=== PATIENT | male | born 1950 | race Caucasian/White ===

== ENCOUNTER → 2024-09-06 | Outpatient (CLI) | payer OTHER ==
[2024-09-12 14:38] LABS: CALCIUM, URINE - PER 24H 94 mg/d (100-250); CALCIUM, URINE - PER VOLUME 10.4 mg/dL; CHLORIDE, URINE - PER 24H 72 mmol/d (140-250); CHLORIDE, URINE - PER VOLUME 80 mmol/L; CITRIC ACID, URINE - PER 24H 435 mg/d (320-1240); CITRIC ACID,URINE - PER VOLUME 483 mg/L; CREATININE, URINE - PER 24H 1674 mg/d (800-2100); CREATININE, URINE - PER VOLUME 186 mg/dL; HOURS COLLECTED 24 hr; MAGNESIUM, URINE - PER VOLUME 4.9 mg/dL; MAGNESIUM, URINE PER 24H 44 mg/d (12-199); OXALATE, URINE - PER 24H 32 mg/d (16-49); OXALATE, URINE - PER VOLUME 35 mg/L; PHOSPHORUS, URINE - PER 24H 603 mg/d (400-1300); PHOSPHORUS, URINE - PER VOLUME 67 mg/dL; POTASSIUM, URINE - PER 24H 58 mmol/d (25-125); POTASSIUM, URINE - PER VOLUME 64 mmol/L; SODIUM, URINE - PER 24H 91 mmol/d (51-286); SODIUM, URINE - PER VOLUME 101 mmol/L; SULFATE, URINE - PER 24H 25 mmol/d (6-30); SULFATE, URINE - PER VOLUME 28 mmol/L; TOTAL VOLUME 900 mL; URIC ACID, URINE - PER 24H 537 mg/d (250-750); URIC ACID, URINE - PER VOLUME 59.7 mg/dL; URINE SUPERSATURATION INTERP Abnormal; URINE SUPERSATURATION, CAHPO4 2.15; URINE SUPERSATURATION, CAOX 6.43; URINE SUPERSATURATION, UA CALC 0.37
== END | disposition home or self-care (01) ==
LOC: LAB SHORT 09:49 → LAB 09:49
PROVIDERS: Urology
DX: N20.1 Calculus of ureter (principal)
CPT/HCPCS: 81003; 81050; 82131; 82140; 82340; 82436; 82507; 82570; 83735; 83935; 83945; 84105; 84133; 84300; 84392; 84560